=== PATIENT | male | born 1965 | race African-American/Black ===

== ENCOUNTER 2017-07-10 17:30 | Inpatient (IN) | payer OTHER ==
[~2017-07-10] VITALS: Ht 180.3 cm; Wt 93.0 kg
--- NOTE | ~2017-07-10 | EKG ---
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 07/11/17 0719 1827 26 Riky Chapa MD, FACC /EPI
--- NOTE | ~2017-07-10 | HC ---
[facility] [place] [address] CONSULTATION Name: VANESA MENDEZ Room #: 251-P [facility] IN .R.#: [id number] Admission: 07/10/17 Attend Phys: Daniel Gillette Discharge: 07/13/17 Date of : 67 Report #: [id number] THIS REPORT FOR: //name// CC: Salvador Gillette PULMONARY CONSULTATION REFERRING PHYSICIAN: Daniel Gillette MD PRIMARY CARE PHYSICIAN: Salvador Valdez MD REASON FOR REFERRAL: Lung mass and dyspnea. HISTORY OF PRESENT ILLNESS: The patient is a 51-year-old -[place] male who presents to the Emergency Room with cough, dyspnea, nausea and vomiting. He is also found to be intoxicated with a blood alcohol level greater than 400. The patient was admitted. A pulmonary consultation was requested. The patient is a fair historian at this moment. Most of the information is obtained from the records. According to the patient, he was recently hospitalized at [facility] few weeks ago. He was treated for influenza. His confirms that he has been told that he had lung mass. He has also been treated for hypertension and diabetes. Presently, he states he feels somewhat better, less dyspneic. He does not recall what happened last evening. Currently, denies any chest pain. Complains of dyspnea. Denies any recent hemoptysis, nausea, vomiting, diarrhea. When seen in the ER, the patient was found to be intoxicated. He has a history of alcohol abuse. PAST MEDICAL HISTORY: As mentioned above. Recent diagnosis of influenza, pneumonia, diabetes mellitus, hypertension, alcohol abuse. PAST SURGICAL HISTORY: Unknown. ALLERGIES: None to medications. MEDICATIONS: His reported home medications include hydrocodone, Levaquin, Tamiflu, aspirin, hydrochlorothiazide, Advil, Lantus, Humalog, Prinivil, Glucophage, Viagra, Zocor, and Ultram. FAMILY HISTORY: Noncontributory. [facility] [address] [place] [address] CONSULTATION Name: VANESSAVANESA Room #: [facility] IN ..#: [id number] Admission: 07/10/17 Attend Phys: Daniel Gillette Discharge: 07/13/17 Date of : 67 Report #: [id number] SOCIAL HISTORY: The patient continues to smoke 1-2 packs a day. He continues to drink. He is . REVIEW OF SYSTEMS: As mentioned above, otherwise 10-point system review negative. PHYSICAL EXAMINATION: GENERAL: He is awake, alert, but somewhat confused. He is able to answer some questions. VITAL SIGNS: Temperature is 98.4 degrees Fahrenheit, pulse is 100, respiratory rate is 20, blood pressure is 156/102 mmHg, saturation 95%. HEENT: Normocephalic, atraumatic. NECK: Supple, without any lymphadenopathy or thyromegaly. CHEST: Breath sounds are fair with mild expiratory wheezes bilaterally. CARDIOVASCULAR: Heart sounds are distant. No obvious murmurs or gallop. Pulses are 2+/4+ bilaterally. ABDOMEN: Soft, nontender, no organomegaly or masses felt. GENITOURINARY: Deferred. RECTAL: Deferred. EXTREMITIES: There is no edema, cyanosis or clubbing. LABORATORY DATA: Chest x-ray shows density involving the right upper lobe. CT chest shows a well circumscribed lobulated right upper lobe mass. This measures 2.3 x 1.6 x 2.3 cm in diameter. There is a small calcification seen in the periphery. Mild infiltrates are seen in the left base. Fatty liver was noted. TSH is normal. Ammonia level is 19. EKG shows nonspecific T-wave abnormalities. Electrolytes are normal. WBC 7000, hemoglobin 14.5, platelets are normal, no evidence of bandemia. Troponin is normal. Blood alcohol level was 467. ASSESSMENT: 1. Alcohol intoxication, history of alcohol abuse. The patient states that he has had alcohol withdrawal in the past. 2. Lobulated right upper lobe lung mass, margins are smooth with small calcifications at the margin. Please see comments below. 3. Tobacco abuse without past history of chronic lung disease. 4. Mild left lower lobe infiltrate, possible pneumonia. RECOMMENDATION: Agree with current plans with alcohol withdrawal protocol, antibiotics for possible pneumonia. In regards to his lung mass, as mentioned above, the margins appears to be smoothed, he has small specks of calcifications peripherally. This likely represent possible benign process, though cannot rule out bronchogenic carcinoma given risk factors. He will need workup eventually once he is stable. This can [facility] [address] [place] [address] CONSULTATION Name: VANESSAVANESA Room #: 251-P DIS IN M.R.#: [id number] Admission: 07/10/17 Attend Phys: Daniel Gillette Discharge: 07/13/17 Date of : 67 Report #: [id number] be performed as an outpatient. Tobacco cessation is recommended. The patient also benefit from alcohol cessation. Consider psychiatry or psychologic consultation. DVT and GI prophylaxis will be addressed. Thank you for this consultation. <ELECTRONICALLY SIGNED> By: Stone Blank MD 07/17/17 1409 1344 [id number] Stone Blank MD /nt
[2017-07-10 17:32] VITALS: BP 125/69
[2017-07-10 18:02] LABS: ABSOLUTE NEUTROPHILS 2.8 thou/uL (1.4-8.2); BASOPHILS 0.5 % (0.0-2.0); EOSINOPHILS 0.5 % (0.0-3.0); HEMATOCRIT 43.3 % (42.0-52.0); HEMOGLOBIN 14.5 gm/dL (14.0-18.0); LYMPHOCYTES 50.6 % (24.0-44.0); MCH 29.7 pg (26.0-34.0); MCHC 33.4 g/dL (28.0-37.0); MONOCYTES 8.3 % (1.0-8.0); PLATELET COUNT 230 thou/uL (150-400); POLYS 40.1 % (36.0-66.0); RBC 4.87 mil/uL (4.50-6.00); RDW 15.9 % (10.5-14.5)
[2017-07-10 18:07] LABS: ANION GAP 16 mmol/L (7-16); BUN 9 mg/dL (7-18); CALCIUM 8.8 mg/dL (8.5-10.1); CHLORIDE 101 mmol/L (98-107); CO2 26 mmol/L (21-32); CREATININE 0.9 mg/dL (0.7-1.3); GLUCOSE 107 mg/dL (74-106); POTASSIUM 3.7 mmol/L (3.5-5.1); SODIUM 143 mmol/L (136-145)
[2017-07-10 18:16] LABS: MAGNESIUM 1.9 mg/dL (1.8-2.4); TROPONIN-I < 0.04 ng/mL (<0.06)
[2017-07-10] MEDS ORDERED: HYDROCODONE-AP1 EAC6 PO (20:11)
[2017-07-10] MEDS ORDERED: OSELTAMIVIR PHO75 MG PO (20:11)
[2017-07-10] MEDS ORDERED: LEVAQUIN 500 M500 M2 PO (20:11)
[2017-07-10] MEDS ORDERED: ASPIR 8181 MG PO (20:11)
[2017-07-10] MEDS ORDERED: LANTUS100 UNIT/M SUBQ (20:12)
[2017-07-10] MEDS ORDERED: HYDROCHLOROTHIA25 M2 PO (20:12)
[2017-07-10] MEDS ORDERED: HUMALOG100 UNIT/1 SUBQ (20:12)
[2017-07-10] MEDS ORDERED: IBUPROFEN 200200 M1 PO (20:12)
[2017-07-10] MEDS ORDERED: PRINIVIL20 MG PO (20:13)
[2017-07-10] MEDS ORDERED: VIAGRA100 MG PO (20:13)
[2017-07-10] MEDS ORDERED: GLUCOPHAGE1000 MG PO (20:13)
[2017-07-10] MEDS ORDERED: ZOCOR 10 MG TAB10 M1 PO (20:13)
[2017-07-10] MEDS ORDERED: TRAMADOL 50 MG50 MG PO (20:14)
[2017-07-11] VITALS (9 sets, daily range): BP systolic 110–165; BP diastolic 64–106
[2017-07-11 21:10] LABS: ALBUMIN 3.5 g/dL (3.4-5.0); DIRECT BILIRUBIN 0.1 mg/dL (<0.1-0.3); TOTAL BILIRUBIN 0.5 mg/dL (<0.1-1.0); TOTAL PROTEIN 7.1 g/dL (6.4-8.2)
[2017-07-12] VITALS (9 sets, daily range): BP systolic 158–200; BP diastolic 99–115
[2017-07-12 04:39] LABS: HEMATOCRIT 42.2 % (42.0-52.0); MCH 29.5 pg (26.0-34.0); MCV 89.2 fL (80.0-100.0); RBC 4.74 mil/uL (4.50-6.00); RDW 15.8 % (10.5-14.5); WBC 5.7 thou/uL (4.0-11.0)
[2017-07-12 04:53] LABS: CREATININE 0.6 mg/dL (0.7-1.3)
[2017-07-12 04:57] LABS: POTASSIUM 2.6 mmol/L (3.5-5.1)
[2017-07-12 12:52] LABS: CALCIUM 9.7 mg/dL (8.5-10.1); CREATININE 0.7 mg/dL (0.7-1.3); MAGNESIUM 1.5 mg/dL (1.8-2.4)
[2017-07-13] VITALS: BP 138/88
[2017-07-13 08:00] VITALS: BP 140/110
[2017-07-13 08:42] LABS: MAGNESIUM 1.6 mg/dL (1.8-2.4); POTASSIUM 3.5 mmol/L (3.5-5.1)
[2017-07-13] MEDS ORDERED: VITAMIN B-1100 M2 PO (09:21)
[2017-07-13] MEDS ORDERED: CHLORDIAZEPOXID10 MG PO (09:21)
[2017-07-13] MEDS ORDERED: PRENATAL PO (09:21)
[2017-07-13] MEDS ORDERED: LEVAQUIN 750 M750 MG PO (09:22)
[2017-07-13 09:37] VITALS: BP 138/88
[2017-07-13 10:06] VITALS: BP 138/88
== END 2017-07-13 11:30 | disposition home or self-care (01) | DRG 177 ==
LOC: ER 17:30 → EROBS 19:44 → ICU 19:44
PROVIDERS: Emergency Medicine; Hospitalist; Internal Medicine Pulmonary Disease; Nurse Practitioner Acute Care
DX: J69.0 Pneumonitis due to inhalation of food and vomit (principal); G92 Toxic encephalopathy; E11.9 Type 2 diabetes mellitus without complications; I10 Essential (primary) hypertension; F17.210 Nicotine dependence, cigarettes, uncomplicated; R09.02 Hypoxemia; F10.129 Alcohol abuse with intoxication, unspecified; R91.8 Other nonspecific abnormal finding of lung field; Z83.3 Family history of diabetes mellitus; Z80.1 Family history of malignant neoplasm of trachea, bronchus and lung; Z79.899 Other long term (current) drug therapy; Z23 Encounter for immunization
CPT/HCPCS: 10203